=== PATIENT | male | born 1995 | race Hispanic/Latino ===

== ENCOUNTER 2021-10-04 19:18 | Emergency (ER) | payer OTHER ==
[~2021-10-04] VITALS: Ht 188 cm; Wt 129.7 kg
[2021-10-04 19:58] LABS: BASOPHILS % (AUTO) 0.2 % (0.0-5.0); EOSINOPHILS % (AUTO) 0.1 % (0.0-8.0); HEMATOCRIT 50.5 % (42-54); LYMPHOCYTES % (AUTO) 6.2 % (21.0-51.0); MEAN CORPUSCULAR HEMOGLOBIN 28.9 pg (27.0-33.0); MEAN CORPUSCULAR HGB CONC 33.3 g/dL (32.0-36.0); MEAN CORPUSCULAR VOLUME 86.9 fL (79-99); MONOCYTES % (AUTO) 6.5 % (3.0-13.0); NEUTROPHILS % (AUTO) 86.7 % (40.0-77.0); PLATELET COUNT (AUTO) 210 K/uL (130-400); RED BLOOD CELL COUNT(AUTO) 5.81 MIL/uL (4.50-6.20); RED CELL DISTRIBUTION WIDTH 12.5 % (11.0-15.5); WHITE BLOOD COUNT (AUTO) 11.5 K/uL (4.8-10.8)
[2021-10-04] MEDS ORDERED: 0.9%NACL 1000ML 1,000 ML IV ONE (20:00)
[2021-10-04] MEDS ORDERED: DICYCLOMINE HCL 10 MG/5 ML ML PO ONE (20:00)
[2021-10-04] MEDS ORDERED: FAMOTIDINE 20MG VIAL IV ONE (20:00)
[2021-10-04] MEDS ORDERED: MAG/ALUM/SIMETH 30 ML UDCUP PO ONE (20:00)
[2021-10-04] MEDS ORDERED: LIDOCAINE HCL 2% VISCOUS 15 ML UDCUP PO ONE (20:00)
[2021-10-04] MEDS ORDERED: ONDANSETRON 4MG INJ IVP ONE (20:00)
[2021-10-04 20:08] LABS: APPEARANCE,URINE CLEAR (CLEAR); BILIRUBIN,URINE NEGATIVE (NEGATIVE); COLOR,URINE YELLOW (YELLOW); GLUCOSE, URINE (UA) NEGATIVE (NEGATIVE); KETONES,URINE NEGATIVE (NEGATIVE); LEUKOCYTE ESTERASE ,URINE NEGATIVE (NEGATIVE); NITRATE,URINE NEGATIVE (NEGATIVE); OCCULT BLOOD,URINE TRACE-LYSED (NEGATIVE); PROTEIN,URINE NEGATIVE (NEGATIVE)
[2021-10-04 20:10] LABS: POTASSIUM 3.7 mmol/L (3.5-5.1)
[2021-10-04 20:14] LABS: ALBUMIN 4.2 g/dL (3.5-5.0); BILIRUBIN,TOTAL 0.5 mg/dL (0.2-1.0); TOTAL PROTEIN, SERUM 8.4 g/dL (6.0-8.3)
[2021-10-04 20:33] LABS: BACTERIA,URINE Rare /HPF (None Seen); RBC,URINE 0-1 /HPF (0-1); SQUAMOUS EPITHELIAL CELL,UR Few /HPF (0-2); WBC,URINE 0-1 /HPF (0-1)
[2021-10-04 21:13] VITALS: BP 130/74
[2021-10-04] MEDS ORDERED: DICY20TA2 PO (21:39)
[2021-10-04] MEDS ORDERED: FAMO-136 PO (21:39)
[2021-10-04] MEDS ORDERED: ONDA4TAB10 PO (21:39)
== END 2021-10-04 21:52 | disposition home or self-care (01) ==
LOC: EDH 19:18
DX: A08.4 Viral intestinal infection, unspecified (principal); E86.0 Dehydration; E66.9 Obesity, unspecified; Z68.36 Body mass index [BMI] 36.0-36.9, adult
CPT/HCPCS: 36415; 76705; 80053; 81001; 83605; 83690; 85025; 87040 ×2; 96361; 96374; 96375; 99284; J2405; J3490; J7030